=== PATIENT | male | born 1955 | race Caucasian/White ===

== ENCOUNTER → 2024-06-10 | Outpatient (REF) | payer MEDICARE ==
[~2024-06-10] MED LIST: ATORVASTATIN CA20 MG PO; IOPAMIDOL 370 MG/ML 100 ML INFUS..BTL INJ ONE; MELOXICAM7.5 MG PO; RAMIPRIL10 MG PO; TIZANIDINE HCL4 MG PO
[2024-06-10 14:19] LABS: CREATININE, SERUM 0.85 mg/dL (0.72-1.25)
== END ==
LOC: CT 13:10
PROVIDERS: ATTEND Nurse Practitioner Family
DX: R04.2 Hemoptysis (principal); I48.91 Unspecified atrial fibrillation; R05.3 Chronic cough; F17.200 Nicotine dependence, unspecified, uncomplicated
CPT/HCPCS: 36415; 71260; 82565; 84520; Q9967

== ENCOUNTER → 2025-04-10 | Outpatient (REF) | payer MEDICARE ==
[2025-04-10 14:41] LABS: CREATININE, SERUM 0.83 mg/dL (0.72-1.25)
== END ==
LOC: CT 13:49
PROVIDERS: ATTEND Internal Medicine Cardiovascular Disease
DX: I48.0 Paroxysmal atrial fibrillation (principal)
CPT/HCPCS: 36415; 71275; 82565; 84520; Q9967